=== PATIENT | female | born 1965 | race Two or more races ===

== ENCOUNTER 2018-07-27 02:13 | Emergency (ER) | payer OTHER ==
[~2018-07-27] VITALS: Ht 167.6 cm; Wt 74.8 kg
[2018-07-27 02:50] VITALS: BP 120/80
== END 2018-07-27 04:21 | disposition left against medical advice (07) ==
LOC: EDBD 02:13 → ER 02:13
DX: R07.89 Other chest pain (principal); R06.02 Shortness of breath; F41.9 Anxiety disorder, unspecified; Z53.21 Procedure and treatment not carried out due to patient leaving prior to being seen by health care provider
CPT/HCPCS: 71045; 93005

== ENCOUNTER 2021-01-26 12:54 | Emergency (ER) | payer OTHER ==
[~2021-01-26] VITALS: Ht 180.3 cm; Wt 72.6 kg
[2021-01-26] MEDS ORDERED: SODIUM CHLORIDE 0.9% 1,000 ML IV ONE ×2 (13:00)
[2021-01-26 13:15] VITALS: BP 123/71
== END 2021-01-26 13:38 | disposition left against medical advice (07) ==
LOC: ER 12:54 → EDBD 12:54 → ER 13:38
DX: R10.13 Epigastric pain (principal); R11.2 Nausea with vomiting, unspecified; Z53.29 Procedure and treatment not carried out because of patient's decision for other reasons
CPT/HCPCS: 93005

== ENCOUNTER 2021-09-14 00:54 | Emergency (ER) | payer OTHER ==
[~2021-09-14] VITALS: Ht 162.6 cm; Wt 66.0 kg
[2021-09-14] MEDS ORDERED: IOHEXOL 350 MG/ML 100ML IJ ONE (01:50)
[2021-09-14 02:01] LABS: Hematocrit 34.6 % (36.0-46.0); Hemoglobin 11.6 g/dL (12.2-16.2); Mean Corpuscular Hgb Conc. 33.6 g/dL (32.0-36.0); Red Blood Cells 3.89 10^6/uL (4.0-5.20); Red Cell Distribution Width 12.6 % (11.8-14.3); White Blood Cell 4.4 10^3/uL (4.4-10.8)
[2021-09-14 02:08] LABS: Basophils % (manual) 0 (0.0-2.0); Blast Cells 0; Myelocytes % 0; Promyelocytes % 0; Reactive Lymphocytes 0
[2021-09-14 02:18] LABS: Albumin 3.6 g/dL (3.4-5.0); BUN/Creatinine Ratio 22.6; Calcium 8.9 mg/dL (8.5-10.1); Magnesium 2.4 mg/dL (1.6-2.6); Potassium 3.9 mmol/L (3.5-5.1)
[2021-09-14 02:21] LABS: Bilirubin, Total 0.4 mg/dL (0.2-1.0); Total Protein 6.9 g/dL (6.4-8.2)
[2021-09-14 03:16] LABS: Band Neutrophils % (manual) 3; Eosinophils % (manual) 1 (0-7); Metamyelocytes % 1
[2021-09-14 03:17] LABS: Lymphocytes % (manual) 55 (10.0-50.0); Monocytes % (manual) 8 (0-12)
[2021-09-14 03:38] LABS: Urine Bacteria NONE SEEN /hpf (None Seen); Urine Blood Negative /uL (Negative); Urine Specific Gravity 1.025 (1.001-1.035); Urine WBC 3 /hpf (0 - 5)
[2021-09-14 05:00] VITALS: BP 122/67
== END 2021-09-14 06:04 | disposition home or self-care (01) ==
LOC: ER 00:54
DX: R07.9 Chest pain, unspecified (principal); Z88.5 Allergy status to narcotic agent
CPT/HCPCS: 36415; 71045; 74177; 80053; 81001; 83690; 83735; 83880; 84443; 84484; 85007; 85027; 93005; 99285; Q9967

== ENCOUNTER 2022-02-03 21:57 | Emergency (ER) | payer OTHER ==
[~2022-02-03] VITALS: Ht 162.6 cm; Wt 67.0 kg
[2022-02-03] MEDS ORDERED: IBUPROFEN 800 MG TAB PO ONE (23:00)
[2022-02-04] VITALS: BP 96/54
[2022-02-04] MEDS ORDERED: ACETAMINOPHEN 500 MG TAB PO ONE
[2022-02-04] MEDS ORDERED: MECLIZINE HCL 25 MG TAB PO ONE
[2022-02-04] MEDS ORDERED: DICY10CA PO (00:47)
[2022-02-04] MEDS ORDERED: MECL1TAB42 PO (00:47)
[2022-02-04] MEDS ORDERED: ONDA-144 PO (00:47)
[2022-02-04] MEDS ORDERED: IBUP600T27 PO (00:47)
== END 2022-02-04 02:12 | disposition home or self-care (01) ==
LOC: ER 21:57
DX: B34.9 Viral infection, unspecified (principal); E78.5 Hyperlipidemia, unspecified; Z88.5 Allergy status to narcotic agent; Z20.822 Contact with and (suspected) exposure to COVID-19
CPT/HCPCS: 36415; 87426; 87804; 99283; J8597